=== PATIENT | male | born 1995 | race Caucasian/White ===

== ENCOUNTER → 2022-01-13 | Outpatient (REF) | payer OTHER ==
[2022-01-13 12:43] LABS: SEMEN APPEARANCE OPAQUE (OPAQUE); SEMEN VISCOSITY LIQUID (LIQUID); SEMEN VOLUME 2.5 ml (2.0-5.0); SPERM CONCENTRATION 14.5 M/ml (>=15.0); WBC CONCENTRATION <=1 M/ml (<=1 M/ml)
== END ==
LOC: M LAB REF 12:20 → M SMT 12:20
PROVIDERS: ATTEND Physician Assistant
DX: N46.9 Male infertility, unspecified (principal)

== ENCOUNTER → 2023-11-25 | Outpatient (REF) | payer BC, OTHER | LOC: M LAB REF 16:47 | PROVIDERS: ATTEND Surgery | DX: L72.11 Pilar cyst (principal) ==

== ENCOUNTER → 2025-02-27 | Outpatient (REF) | payer OTHER ==
[2025-02-27 14:29] LABS: SEMEN APPEARANCE OPAQUE (OPAQUE); SEMEN VISCOSITY LIQUID (LIQUID); SEMEN VOLUME 1.8 ml (2.0-5.0); WBC CONCENTRATION <=1 M/ml (<=1 M/ml)
== END ==
LOC: M LAB REF 14:18
PROVIDERS: ATTEND Urology
DX: Z98.52 Vasectomy status (principal)